=== PATIENT | female | born 1950 | race Caucasian/White ===

== ENCOUNTER → 2017-06-22 | Day surgery (SDC) | payer OTHER, BC ==
[2017-06-06 09:14] VITALS: Ht 160 cm; Wt 73.6 kg
[~2017-06-22] VITALS: Ht 160 cm; Wt 73.6 kg
[~2017-06-22] MED LIST: ACET-1256 PO; ASPI81TA28 PO; ATOR-26 PO; CALC600T37 PO; CHOL1TAB42 PO; CYCL0.052 OP; CYPR4TAB31 PO; DARI15TA PO; IOPAMIDOL INJ 61% 15 ML VIAL ONE; LATA0.5S OP; LEVO112T2 PO; LIDOCAINE HCL 1% MPF 5 ML VIAL ONE; LSN/10125 PO; MELO15TA4 PO; METF-384 PO; MULT-610 PO; NXM/40 PO; POLYSOL4 OP; SODIUM CHLORIDE 0.9% INJ 10 ML VIAL ONE
--- NOTE | 2017-06-22 13:47 | History & Physical Bridge - [place] ---
H&P Re-Evaluation Bridge Note: I have examined the patient, reviewed the History & Physical and in the interval since the performance of the History & Physical I have noted the following changes of clinical significance: No changes noted
[2017-06-22 14:05] VITALS: TEMP 37.4
--- NOTE | 2017-06-22 14:16 | Discharge Instructions ---
Discharge Instructions Date of Service Jun 22, 2017. Visit Reason for Visit: Lumbar Spinal Stenosis Discharge Discharge Diagnosis / Problem: right leg pain Discharge Goals Goal(s): Decrease discomfort, Improve function Medications Stopped Medications Name(s): last dose of asa and meloxicam was on monday. Activity Recommendations Activity Limitations: resume your previous activity Anesthesia . Post Anesthesia Instructions: If you have had General Anesthesia or IV Sedation: * Do not drive today. * Resume driving when surgeon permits. * Do not make important decisions or sign legal documents today. * Call surgeon for: 1. Temperature elevations greater than 101 degrees F. 2. Uncontrollable pain. 3. Excessive bleeding. 4. Persistent nausea and vomiting. 5. Medication intolerance (nausea, vomiting or rash). * For nausea and vomiting use only clear liquids such as: tea, soda, bouillon until nausea subsides, then gradually increase diet as tolerated. * If you have any concerns or questions, call your surgeon's office. If physician is unavailable and it is an emergency, call 911 or go to the nearest emergency room. . Diet Recommendations Recommended Home Diet: resume previous diet Procedures Procedures Performed: Lumbar Epidural Steroid Injection Pending Studies Studies pending at discharge: no Medical Emergencies . Who to Call and When: Medical Emergencies: If at any time you feel your situation is an emergency, please call 911 immediately. . Non-Emergent Contact Non-Emergency issues call your: Specialist . . "Provider Documentation" section prepared by Kris Villagran. .
[2017-06-22 14:33] VITALS: BP 108/71; PULSE 84; O2SAT 100
--- NOTE | 2017-06-22 14:39 | OPERATIVE REPORT ---
DATE OF OPERATION: 06/22/2017 PREOPERATIVE DIAGNOSES: Multifactorial L4-L5 stenosis and grade 1 L4-L5 spondylolisthesis with a right L5 radiculopathy. POSTOPERATIVE DIAGNOSES: Same. PROCEDURE: Right paramedian L5-S1 intralaminar epidural steroid injection under fluoroscopic guidance. INDICATIONS: The patient is a 67-year-old white female who has had problems with L5 radiculopathy down the right leg that has not responded to conservative measures including medications and chiropractic treatment. She presents today for an epidural injection to provide her with relief of radicular pain that is functioning limiting to her. PHYSICAL EXAMINATION: GENERAL: Pleasant female seated comfortably. MUSCULOSKELETAL: Lumbar paraspinal muscles were palpated and noted to be nontender. She had no issues with forward flexion or extension. She has some minimal right sciatic notch sensitivity. Normal lower extremity strength. Negative seated straight leg raises. CONSENT: Verbal and written consent was obtained from the patient. Risks and benefits were reviewed. Risks include, but are not limited to epidural abscess, epidural hematoma, allergic reaction, and dural puncture. The patient wishes to proceed. DESCRIPTION OF PROCEDURE: The patient was taken back to the special procedures room of [facility]. She was maintained in a prone position. Backside was cleansed with Betadine x3 and a dry sterile dressing was applied. Fluoroscope was used to identify the L5-S1 intralaminar space. Overlying skin on the right side was anesthetized with 4 mL of lidocaine 1% with a 25-gauge 1-1/2 inch needle. A 22-gauge 4-1/4 inch Tuohy needle was then directed down towards the intralaminar space. It was advanced under lateral fluoroscopic guidance to a depth of 7 cm with a loss of resistance noted. Isovue 300 contrast was injected in and after negative aspiration, noted to be in the epidural space. She then underwent injection after negative aspiration of 40 mg of Depo-Medrol and 4 mL of preservative free sodium chloride. Injection was well tolerated. DISPOSITION: 1. The patient was taken out into the discharge recovery area, where she will be discharged home once discharge criteria have been met. 2. Follow up in the [facility] office in 4 weeks' time. I attest to the content of the Intraoperative Record and any orders documented therein. Any exceptions are noted below. [facility]
== END | disposition home or self-care (01) ==
LOC: X.SURG 12:44
PROVIDERS: ATTEND Physical Medicine & Rehabilitation
DX: M48.061 Spinal stenosis, lumbar region without neurogenic claudication (principal); M43.16 Spondylolisthesis, lumbar region; I10 Essential (primary) hypertension; E11.9 Type 2 diabetes mellitus without complications; E07.9 Disorder of thyroid, unspecified; Z79.82 Long term (current) use of aspirin; Z79.84 Long term (current) use of oral hypoglycemic drugs; Z79.899 Other long term (current) drug therapy

== ENCOUNTER → 2018-02-01 | Day surgery (SDC) | payer OTHER, BC ==
[2018-01-31 08:25] VITALS: Ht 154.9 cm; Wt 74.5 kg
[~2018-02-01] VITALS: Ht 154.9 cm; Wt 74.5 kg
[~2018-02-01] MED LIST changes: -CYPR4TAB31 PO; +CYPR4TAB45 PO; +LEVO100T PO; -LEVO112T2 PO; +MELO-83 PO; -MELO15TA4 PO
--- NOTE | 2018-02-01 14:44 | [facility] Post Operative Brief Note ---
Immediate Operative Summary Operative Date Feb 01, 2018. Pre-Operative Diagnosis L4-L5 spondylolisthesis with right lower extremity radiculopathy Post-Operative Diagnosis Same Procedure(s) Performed Lumbar Epidural Steroid Injection Surgeon Dr. Sharif Villagran Computer Programmer Chief Surgeon(s) None Estimated Blood Loss 0 Findings Consistent with Post-Op Diagnosis Specimens NA Drains None Anesthesia Type Local Complication(s) none Disposition Disposition:
--- NOTE | 2018-02-01 14:46 | Discharge Instructions ---
Discharge Instructions Date of Service Feb 01, 2018. Visit Reason for Visit: Lumbar Radiculopathy, Lumbar Spondylolisthesis Discharge Discharge Diagnosis / Problem: right leg pain Discharge Goals Goal(s): Decrease discomfort, Improve function Medications Stopped Medications Name(s): Meloxicam/ASA Last dose approx 3 days ago Activity Recommendations Activity Limitations: resume your previous activity Anesthesia . Post Anesthesia Instructions: If you have had General Anesthesia or IV Sedation: * Do not drive today. * Resume driving when surgeon permits. * Do not make important decisions or sign legal documents today. * Call surgeon for: 1. Temperature elevations greater than 101 degrees F. 2. Uncontrollable pain. 3. Excessive bleeding. 4. Persistent nausea and vomiting. 5. Medication intolerance (nausea, vomiting or rash). * For nausea and vomiting use only clear liquids such as: tea, soda, bouillon until nausea subsides, then gradually increase diet as tolerated. * If you have any concerns or questions, call your surgeon's office. If physician is unavailable and it is an emergency, call 911 or go to the nearest emergency room. . Diet Recommendations Recommended Home Diet: resume previous diet Procedures Procedures Performed: Lumbar Epidural Steroid Injection Pending Studies Studies pending at discharge: no Medical Emergencies . Who to Call and When: Medical Emergencies: If at any time you feel your situation is an emergency, please call 911 immediately. . Non-Emergent Contact Non-Emergency issues call your: Specialist . . "Provider Documentation" section prepared by Kris Villagran. .
[2018-02-01 14:50] VITALS: TEMP 36.6
[2018-02-01 15:07] VITALS: BP 125/76; PULSE 86; O2SAT 100
--- NOTE | 2018-02-01 15:44 | OPERATIVE REPORT ---
DATE OF OPERATION: 02/01/2018 PREOPERATIVE DIAGNOSES: Grade 1 L4-L5 spondylolisthesis with right lower extremity radiculopathy, history of falls. POSTOPERATIVE DIAGNOSES: Same. PROCEDURE: Right paramedian L5-S1 interlaminar epidural steroid injection under fluoroscopic guidance. INDICATIONS: Patient is a 67-year-old white female who underwent an epidural steroid injection a number of months ago, reported just recently the pain has been returning and problematic to her. She is asking for another injection and is scheduled for an epidural steroid injection. PHYSICAL EXAMINATION: Pleasant female, seated comfortably. She is without any focal weakness. She has some audible crepitus with bilateral knee range of motion, no instability. Negative seated straight leg raises. CONSENT: Verbal and written consent obtained from the patient. Risks and benefits reviewed. Risks include but are not limited to epidural abscess, epidural hematoma, allergic reaction, and dural puncture. Patient wishes to proceed. DESCRIPTION OF PROCEDURE: Patient was taken back on special procedures room of [facility]. She was maintained in a prone position. Backside was cleansed with Betadine x3, and a dry sterile dressing was applied. Fluoroscopy was used to identify the L5-S1 interlaminar space. Overlying skin on the right side was anesthetized with 4 mL of lidocaine 1% with a 25 gauge 1-1/2-inch needle. A 22-gauge 3-1/2 inch Tuohy needle was then directed down toward the interlaminar space, and loss of resistance was noted at a depth of 5.5 cm. Isovue-300 contrast 1 mL was injected which demonstrated epidural uptake pattern. She then underwent injection after negative aspiration of 40 mg of Depo-Medrol and 4 mL of preservative free sodium chloride. Injection was well tolerated. DISPOSITION: 1. Patient is taken out in the discharge recovery area from where she will be discharged home once discharge criteria met. 2. Follow up in the [facility] office in 4 weeks time. I attest to the content of the Intraoperative Record and any orders documented therein. Any exception s are noted below.
== END | disposition home or self-care (01) ==
LOC: X.SURG 13:07
PROVIDERS: ATTEND Physical Medicine & Rehabilitation
DX: M43.16 Spondylolisthesis, lumbar region (principal); M54.16 Radiculopathy, lumbar region